=== PATIENT | male | born 2005 | race Hispanic/Latino ===

== ENCOUNTER 2025-05-04 17:29 | Emergency (ER) | payer SELFPAY ==
[2025-05-04 17:36] VITALS: BP 112/87
[2025-05-04 19:41] VITALS: BMI 25.5
[2025-05-04 20:16] VITALS: BP 139/76
--- NOTE | 2025-05-04 22:32 | ED.GENMED ---
History of Present Illness
General
Chief Complaint: Musculo-Skeletal Complaint
Source: patient
Exam Limitations: none
Time Seen by Provider: 05/04/25 22:04
Nursing documentation reviewed up to this point in time: agreed with
History of Present Illness
History of Present Illness:
HISTORY OF PRESENT ILLNESS
The patient is a 19-year-old male who presents with a chief complaint of left knee pain and swelling that began this morning. The patient reports no history of trauma, recent injury, or twisting incidents. The knee became painful without any
specific event. The pain is localized to the prepatellar area, with minimal swelling noted, and exacerbates with movement. The patient states, 'It kind of started this morning.' There is no pain reported below the knee, and there has been no history
of knee problems in the past.
The patients x-ray imaging, reviewed by a radiologist, showed no fractures but indicated some inflammation of the prepatellar bursa. The patient works in a role requiring frequent bending, lifting, and kneeling, which might contribute to irritation
from repetitive movement.
The patient is on isotretinoin (commonly known by the brand name Accutane) for acne, currently in the final ten days of a six-month course. The patient confirms regular monitoring of blood counts and cholesterol levels, which have remained normal
during the course of treatment.
The patient has been advised to use an morgan wrap during the day, switch from ice to moist heat after the first two days, and take prescription-strength ibuprofen to manage inflammation and pain, with guidance to take it with food to avoid
gastrointestinal discomfort. Follow-up with an orthopedic physician has been recommended if symptoms persist.
Past History
Past History
ED Past Medical History: Other (Acne)
ED Past Surgical History: None
Social History
Tobacco: Non-smoker
Alcohol: None
Drug: None
Personal: Single
Living: with family
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
Family History
Family History: Other (Noncontributory)
Phy Exam
Physical Exam
Physical Exam:
GENERAL: 19-year-old male appears his stated age, bright alert, pleasant, appears in no acute distress. Mother is accompanying him.
EYE: anicteric
NECK: Supple, nontender, no meningismus, no significant adenopathy.
ENT: oral mucosa is moist. No rhinorrhea.
CARDIAC: Regular rate and rhythm. no murmur.
LUNGS: Clear breath sounds bilaterally, no acute respiratory distress, no wheezes/rales/rhonchi
ABDOMEN: Soft, nondistended, without focal tenderness
NEUROLOGICAL: Alert and oriented x3, no focal neuro deficits. Gait is steady.
SKIN: Warm and dry, normal color, skin intact. No rash.
MUSCULOSKELETAL: No C/C/E. peripheral pulses are full and equal b/l. Left knee has very minimal soft tissue swelling anterior superior aspect with moderate local tenderness anterior superior aspect. There is no erythema. No palpable heat. Full
range of motion of left knee with increased pain with flexion greater than 90 degrees. There is no joint effusion. No tenderness to the lower leg nor thigh. Negative laxity.
PSYCH: Normal and appropriate interaction.
Course
Orders/Labs/Results
Orders:
Orders
05/04/25 17:38
Knee, Left 4 or More Views [CR Knee - Left 4 Or More View*] Urgent
Comment:
Reason For Exam: pain and swelling
05/04/25 22:30
Morgan Wrap Left-Treatment ONCE
Ibuprofen [Motrin] 600 mg PO NOW STA
05/04/25 22:31
Ibuprofen [Motrin] 600 mg .ROUTE .STK-MED ONE
Vital Signs
Initial and Last Documented VS:
Initial Vital Signs
Temp Pulse Resp BP Pulse Ox
98 F 80 16 112/87 98
05/04/25 17:36 05/04/25 17:36 05/04/25 17:36 05/04/25 17:36 05/04/25 17:36
Last Documented Vital Signs
Temp Pulse Resp BP Pulse Ox
98 F 70 16 139/76 99
05/04/25 17:36 05/04/25 22:43 05/04/25 17:36 05/04/25 20:16 05/04/25 22:43
MDM/Problems Addressed
Differential Diagnosis Includes:
DIFFERENTIAL DIAGNOSIS
The Differential Diagnosis includes, in no particular order and is not limited to:
1. Prepatellar bursitis
2. Patellar tendinitis
3. Osteoarthritis
4. Meniscal tear
5. Patellofemoral pain syndrome
6. Ligament sprain (e.g., ACL, MCL)
7. Gout
8. Rheumatoid arthritis
9. Infectious arthritis
10. Tendonitis.
MDM/Problems Addressed:
Acute left knee pain and swelling
X-ray shows prepatellar bursitis. Otherwise unremarkable.
PLAN
- Advise use of ice for the initial two days, followed by a transition to moist heat.
- Prescribe ibuprofen (prescription strength) to be taken up to four times daily as needed, with food.
- Recommend use of an morgan wrap during the day for support, off at night.
- Provide a referral to an orthopedic physician for follow-up if symptoms do not resolve.
- Discuss free clinic options for future follow-up due to lack of insurance.
*Radiology
Radiology exam reviewed: radiology read reviewed
*Pulse Oximetry
SaO2: 100
Oxygen Mode of Delivery: Room air
Patient hypoxic: no
*Critical Care Note
Total Time (30-74mins, 75-104mins- exclusive of procedures): Not Applicable
Patient Management
Social determinants of health affecting care: Financial situation (SOCIAL DETERMINANTS AFFECTING HEALTH The patient does not have health insurance and is paying for medications [id number], including the isotretinoin, which he describes as
expensive. The patient was given information about a local free clinic for potential follow-up if needed.)
ED Attending Note
-
Portions of this chart may have been created with voice recognition software.� Occasional wrong word or��sound alike� substitutions may have occurred due to the inherent limitations of voice recognition software.
Discharge Plan
Departure
Patient Disposition: Home (Routine Discharge)
Date of Disposition: 05/04/25
Time of Disposition: 22:32
Patient with high blood pressure during this ER visit?: No
Condition: Good
Discharge Problem:
Bursitis, prepatellar, left
Instructions: Prepatellar Bursitis Exercises
Prescriptions:
New
ibuprofen 600 mg tablet
600 mg PO Q6H PRN (Reason: fever or pain) Qty: 30 0RF
Referrals:
[facility] [Outside] - Call in 1-3 days for appt
Moo Alvarado MD [Active, Orthopedics] - Call in 1-3 days for appt
NONE,* [Family Provider, Internal Medicine]
Interventions
Interventions:
*Risk Screen - Suicide Last Done: 05/04/25 17:36
*General Assessment Last Done: 05/04/25 19:41
*Neglect/Abuse Screening Last Done: 05/04/25 17:36
*ED COVID-19 Vaccine History Last Done: 05/04/25 19:41
*ED Influenza Vaccine History Last Done: 05/04/25 19:41
[facility] Fall Risk Assessment Tool Last Done: 05/04/25 20:16
*Nursing Disposition Last Done: 05/04/25 22:43
ED-Musculoskeletal Assessment Last Done: 05/04/25 19:41
Discharge Date and Time
Discharge Date/Time: 05/04/25 22:43
Print Language: TELUGU
[2025-05-04] MEDS: MOTRIN 600 MG PO (22:36)
== END 2025-05-04 22:43 | disposition home or self-care (01) ==
LOC: EMR 17:29
PROVIDERS: EMERGENCY PHYSICIAN Emergency Medicine
DX: M70.42 Prepatellar bursitis, left knee (principal); Z59.71 Insufficient health insurance coverage
CPT/HCPCS: 99283; 73564